=== PATIENT | female | born 1960 | race Caucasian/White ===

== ENCOUNTER 2019-01-07 02:04 | Emergency (ER) | payer BC ==
--- OUTSIDE RECORDS SUMMARY | 2019-01-07 02:09 | XMS REPORT | Continuity of Care Document ---
:1960 Author Organization [facility] Care Team Providers Name Role Phone Neeraj Jimenez MD Unavailable Unavailable Encounters Encounter Performer Location Date Office Visit [facility] Jul 11, 2012 Allergies, Adverse Reactions, Alerts Type Substance Reaction Status Drug allergy PENICILLIN Active Problems Problem Effective Dates Problem Status ELBOW PAIN, BILATERAL Jun 06, 2012 Active NECK PAIN Jun 06, 2012 Active PAIN IN JOINT, MULTIPLE SITES Jun 06, 2012 Active CERVICAL RADICULOPATHY Inactive LATERAL EPICONDYLITIS, BILATERAL Inactive CERVICAL DDD Jun 06, 2012 Active SHOULDER PAIN, RIGHT Inactive Procedures Date Description Comments Jun 06, 2012 genitourinary review of systems, E&M denies loss of urine, frequent urination,night time urination,painful urination,blood in urine, or kidney stones Jun 06, 2012 genitourinary review of systems, E&M denies loss of urine, frequent urination,night time urination,painful urination,blood in urine, or kidney stones Jul 11, 2012 genitourinary review of systems, E&M denies loss of urine, frequent urination,night time urination,painful urination,blood in urine, or kidney stones Medications Medication Instructions Start Date Status AMITRIPTYLINE HCL TABS per other M.D. Jun 06, 2012 Active AMITRIPTYLINE HCL 25 MG TABS 1 PO QHS Jul 11, 2012 Active Vital Signs Date Description Test Result Jun 06, 2012 height E&M - 8302-2 HEIGHT 63.5 in Jun 06, 2012 weight E&M - 3141-9 WEIGHT 205 lb
--- OUTSIDE RECORDS SUMMARY | 2019-01-07 02:09 | XMS REPORT | Continuity of Care Document ---
:1960 Author Organization [facility] Care Team Providers Name Role Phone TROY Hermosillo, Wesly Unavailable Unavailable Insurance Providers Payer name Policy type / Policy ID Covered libertarian ID Policy [place] Coverage type BCBS PPO PRIMARY [place] [employer] [place]) UNITED HEALTHCARE (EPO) UNITED HEALTHCARE (EPO) UNITED HEALTHCARE (EPO) UNITED HEALTHCARE (EPO) UNITED HEALTHCARE (EPO) UNITED HEALTHCARE (EPO) UNITED HEALTHCARE (EPO) UNITED HEALTHCARE (EPO) UNITED HEALTHCARE (EPO) UNITED HEALTHCARE (EPO) UNITED HEALTHCARE (EPO) UNITED HEALTHCARE (EPO) UNITED HEALTHCARE (EPO) UNITED HEALTHCARE (EPO) UNITED HEALTHCARE (EPO) UNITED HEALTHCARE (EPO) UNITED HEALTHCARE (EPO) [place]) Encounters Encounter Performer Location Date Office Visit Wesly Hermosillo PA-C [facility] Medical [facility] Allergies, Adverse Reactions, Alerts Type Substance Reaction Status Drug allergy CODEINE Inactive Drug allergy PENICILLIN throat closes Active Drug allergy DEMEROL rash Active Problems Problem Effective Dates Problem Status HYPERLIPIDEMIA Active PARESTHESIA May 25, 2012 Active SHOULDER PAIN May 25, 2012 Active ELBOW PAIN, BILATERAL May 25, 2012 Active CERVICAL RADICULOPATHY May 25, 2012 Active CANDIDIASIS, SKIN May 25, 2012 Active DEGENERATIVE DISC DISEASE, 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, 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 Jun 07, 2012 Active SPASM, MUSCLE Jun 07, 2012 Active PAIN IN JOINT, MULTIPLE SITES Mar 28, 2013 Active MYALGIA Mar 28, 2013 Active ALLERGIC RHINITIS Mar 28, 2013 Inactive SINUSITIS, ACUTE Apr 11, 2013 Active OTALGIA Jul 12, 2013 Active SKIN TAG Dec 13, 2013 Inactive APHTHAE, ORAL May 21, 2015 Active Procedures Date Description Comments March 09, 2011 mammogram Done May 25, 2012 smoking status former smoker March 09, 2011 mammogram Completed Oct 22, 2014 smoking status Former smoker Nov 20, 2014 smoking status Former smoker May 21, 2015 smoking status Former smoker Medications Medication Instructions Start Date Status MEDROL (AILYN) 4 MG TABS Take as directed Jun 07, 2012 Inactive AMITRIPTYLINE HCL 25 MG TAB 2 po qhs Jun 07, 2012 Inactive FLEXERIL TAB 10MG 1 po qhs Jun 07, 2012 Inactive LOTRISONE 1-0.05 % CREA apply BID to the affected May 25, 2012 Inactive area til the rash dis appears MEDROL (AILYN) 4 MG TABS Take as directed with food x 6 Mar 28, 2013 Inactive days BACTRIM DS 800-160 MG TABS one tab po BID x 10d Apr 03, 2013 Inactive CEFTIN 500 MG TABS 1 PO twice a day x 10d Jul 12, 2013 Inactive AMITRIPTYLINE HCL 50 MG TABS 1/2 tab po qhs Apr 11, 2013 Inactive FLEXERIL TAB 10MG 1 PO Daily @ bedtiime prn Jul 12, 2013 Inactive muscle spasm/pain SINGULAIR 10 MG TAB one tab po qpm Mar 28, 2013 Inactive CRESTOR 10 MG TABS one po qhs Apr 11, 2013 Inactive A/B OTIC 5.4-1.4 % SOLN 2-4 gtt L ear qid prn earache Jul 12, 2013 Inactive NYSTATIN 859153 UNIT/GM CREA APPLY TO AFECTED AREAS BID PRN Nov 20, 2014 Active CYCLOBENZAPRINE HCL 10 MG TABS 1 po TID prn muscle spasms Nov 20, 2014 Active COMPOUND MAALOX 2OZ, VISCOUS Swish and spit 15cc q 6 hours May 21, 2015 Active LIDOCAINE 2OZ, BENADRYL 2OZ prn MELOXICAM 15 MG TABS 1 po qd Oct 22, 2014 Active Immunizations Vaccine Date Status pneumococcal immunization administered Aug 11, 2007 completed Vital Signs Date Description Test Result May 25, 2012 height E&M - 8302-2 HEIGHT 63 in May 25, 2012 weight E&M - 3141-9 WEIGHT 208.5 lb May 25, 2012 temperature E&M TEMPERATURE 98.3 deg f May 25, 2012 pulse rate E&M - 8867-4 PULSE RATE 67 /min May 25, 2012 blood pressure, systolic - 8480-6 BP SYSTOLIC 126 mm Hg May 25, 2012 blood pressure, diastolic - 8462-4 BP DIASTOLIC 77 mm Hg Jun 07, 2012 weight E&M - 3141-9 WEIGHT 212 lb Jun 07, 2012 blood pressure, systolic - 8480-6 BP SYSTOLIC 130 mm Hg Jun 07, 2012 blood pressure, diastolic - 8462-4 BP DIASTOLIC 78 mm Hg Jun 07, 2012 pulse rate E&M - 8867-4 PULSE RATE 80 /min Mar 28, 2013 weight E&M - 3141-9 WEIGHT 220 lb Mar 28, 2013 temperature E&M TEMPERATURE 97.9 deg f Mar 28, 2013 pulse rate E&M - 8867-4 PULSE RATE 70 /min Mar 28, 2013 blood pressure, systolic - 8480-6 BP SYSTOLIC 122 mm Hg Mar 28, 2013 blood pressure, diastolic - 8462-4 BP DIASTOLIC 80 mm Hg Apr 11, 2013 weight E&M - 3141-9 WEIGHT 217 lb Apr 11, 2013 temperature E&M TEMPERATURE 97.6 deg f Apr 11, 2013 pulse rate E&M - 8867-4 PULSE RATE 67 /min Apr 11, 2013 blood pressure, systolic - 8480-6 BP SYSTOLIC 124 mm Hg Apr 11, 2013 blood pressure, diastolic - 8462-4 BP DIASTOLIC 80 mm Hg Jul 12, 2013 weight E&M - 3141-9 WEIGHT 219 lb Jul 12, 2013 temperature E&M TEMPERATURE 97.8 deg f Jul 12, 2013 pulse rate E&M - 8867-4 PULSE RATE 76 /min Jul 12, 2013 blood pressure, systolic - 8480-6 BP SYSTOLIC 120 mm Hg Jul 12, 2013 blood pressure, diastolic - 8462-4 BP DIASTOLIC 82 mm Hg Dec 13, 2013 weight E&M - 3141-9 WEIGHT 216.8 lb Dec 13, 2013 temperature E&M TEMPERATURE 98.1 deg f Dec 13, 2013 blood pressure, systolic - 8480-6 BP SYSTOLIC 132 mm Hg Dec 13, 2013 blood pressure, diastolic - 8462-4 BP DIASTOLIC 76 mm Hg Oct 22, 2014 height E&M - 8302-2 HEIGHT 63 in Oct 22, 2014 weight E&M - 3141-9 WEIGHT 210.8 lb Oct 22, 2014 temperature E&M TEMPERATURE 98.0 deg f Oct 22, 2014 pulse rate E&M - 8867-4 PULSE RATE 82 /min Oct 22, 2014 blood pressure, systolic - 8480-6 BP SYSTOLIC 130 mm Hg Oct 22, 2014 blood pressure, diastolic - 8462-4 BP DIASTOLIC 86 mm Hg Oct 22, 2014 respiratory rate E&M - 9279-1 RESP RATE 10 /min Nov 20, 2014 height E&M - 8302-2 HEIGHT 63 in Nov 20, 2014 weight E&M - 3141-9 WEIGHT 216.8 lb Nov 20, 2014 temperature E&M TEMPERATURE 98.0 deg f Nov 20, 2014 pulse rate E&M - 8867-4 PULSE RATE 73 /min Nov 20, 2014 blood pressure, systolic - 8480-6 BP SYSTOLIC 138 mm Hg Nov 20, 2014 blood pressure, diastolic - 8462-4 BP DIASTOLIC 81 mm Hg Nov 20, 2014 respiratory rate E&M - 9279-1 RESP RATE 10 /min May 21, 2015 weight E&M - 3141-9 WEIGHT 209 lb May 21, 2015 temperature E&M TEMPERATURE 98.7 deg f May 21, 2015 pulse rate E&M - 8867-4 PULSE RATE 71 /min May 21, 2015 blood pressure, systolic - 8480-6 BP SYSTOLIC 123 mm Hg May 21, 2015 blood pressure, diastolic - 8462-4 BP DIASTOLIC 65 mm Hg May 21, 2015 respiratory rate E&M - 9279-1 RESP RATE 10 /min Results Date Description Test Name Value Reference Interpretation Status Nov 20, hemoglobin, blood HGB 13.1 g/dL 12.0-15.0 2014Nov 20, hematocrit, blood HCT 39.1 % 35.0-43.8 2014Nov 20, sodium, serum SODIUM 138 mmol/L 811-101 [id number] Nov 20, potassium, serum POTASSIUM 4.3 mmol/L 3.3-5.0 2014Nov 20, albumin, serum ALBUMIN 4.0 g/dL 3.5-5.0 2014Nov 20, calcium, serum CALCIUM 9.3 mg/dL 8.8-10.0 2014Nov 20, creatinine, serum CREATININE 0.71 mg/dL 0.46-1.20 2014Nov 20, urea nitrogen, blood BUN 17 mg/dL 8-20 2014Nov 20, alkaline phosphatase, ALK PHOS 39 U/L 26-102 2014 serum Nov 20, aspartate SGOT (AST) 19 U/L 10-42 2014 aminotransferase (SGOT), serum Nov 20, alanine SGPT (ALT) 26 U/L 11-43 2015 aminotransferase (SGPT), serum Nov 20, cholesterol, serum CHOLESTEROL 239 mg/dl 120-200 High 2014Nov 20, HDL cholesterol, HDL 51 mg/dl 31-79 2014 serum Nov 20, LDL cholesterol, LDL 149 mg/dl 0-130 High 2015 serum Nov 20, thyroid stimulating TSH 2.13 0.34-5.60 2015 hormone, serum uIU/mL
--- OUTSIDE RECORDS SUMMARY | 2019-01-07 02:09 | XMS REPORT | Continuity of Care Document ---
:1960 Author Organization Interface Problems Problem Status Onset Classification Date Comments Source Date Reported APHTHAE, ORAL Active Condition 05/21/2015 Medical 015 Group Aphthous ulcer of Active Problem 12/05/2018 Data [facility] mouth<sup>1</sup> 015 migrated Group from [employer] on 06/07/15. 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 [facility] 014 Group OTALGIA Active Condition 05/21/2015 [facility] 013 Group SINUSITIS, ACUTE Active Condition 05/21/2015 [facility] 013 Group PAIN IN JOINT, Active Condition 05/21/2015 [facility]LE [facility] MYALGIA Active Condition 05/21/2015 [facility] 013 Group ALLERGIC RHINITIS Inactive Condition 05/21/2015 [facility] 013 Group Multiple joint Active Problem 12/05/2018 Data Medical pain<sup>8</sup> 013 migrated Group from [employer] on 03/15/15. Muscle Active Problem 12/05/2018 Data Medical pain<sup>9</sup> 013 migrated Group from [employer] on 03/15/15. DEGENERATIVE DISC Active Condition 05/21/2015 Medical DISEASE, CERVICAL 012 Group SPINE DEGENERATIVE JOINT Active Condition 05/21/2015 Medical DISEASE 012 Group SPASM, MUSCLE Active Condition 05/21/2015 Medical 012 Group Degeneration of Active Problem 12/05/2018 Data [facility] cervical 012 migrated Group intervertebral from GE disc<sup>6</sup> Centricity on 03/15/15. 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 Spasm<sup>14</sup> Active Problem 12/05/2018 Data Medical 012 migrated Group from [employer] on 03/15/15. NECK PAIN Active Condition 07/11/2012 [facility] CERVICAL DDD Active Condition 07/11/2012 [facility] PARESTHESIA Active Condition 05/21/2015 Medical 012 Group SHOULDER PAIN Active Condition 05/21/2015 Medical 012 Group ELBOW PAIN, Active Condition 05/21/2015 [facility] BILATERAL [facility] CERVICAL Active Condition 05/21/2015 [facility] RADICULOPATHY 012 [facility] CANDIDIASIS, SKIN Active Condition 05/21/2015 [facility] 012 Group Candidiasis of Resolved Problem 12/05/2018 Data Medical skin<sup>2, 3, 012 migrated Group 4</sup> from [employer] on 04/23/15. Cervical Active Problem 12/05/2018 Data Medical radiculopathy<sup>5< 012 migrated Group /sup> from [employer] on 03/15/15. Pain in Active Problem 12/05/2018 Data Medical elbow<sup>11</sup> 012 migrated Group from [employer] on 03/15/15. Paresthesia<sup>12</ Active Problem 12/05/2018 Data Medical sup> 012 migrated Group from [employer] on 03/15/15. Shoulder Active Problem 12/05/2018 Data Medical pain<sup>13</sup> 012 migrated Group from [employer] on 03/15/15. LATERAL Inactive Condition 07/11/2012 [facility] EPICONDYLITIS, Bone & BILATERAL Joint SHOULDER PAIN, RIGHT Inactive Condition 07/11/2012 [facility] HYPERLIPIDEMIA Active Condition 05/21/2015 Medical Group Hyperlipidemia<sup>7 Active Problem 12/05/2018 Data Medical </sup> migrated Group from [employer] on 03/15/15. Obesity Active Problem 12/05/2018 Medical Group Medications Medication Details Route Status Patient Ordering Order Source Instructions Provider Date ketoconazole 200 200 mg=1 tab, No MH mg oral tablet PO, Daily, X Longer 018 Medical 10 day, # 10 Active Group tab, 0 Refill(s), Pharmacy: [facility]/pharmacy #[id number] Nystatin 384204 1 appl, TOP, No MH UNT/ML Topical TID, X 7 day, Longer 018 Medical Cream # 30 gm, 0 Active Group Refill(s), Pharmacy: [facility]/pharmacy #[id number] FIRST Mouthwash See Active MH BLM topical Instructions, 018 Medical suspension # 237 unknown Group unit, Refill(s) 1, SWISH AND SPIT 15 MILLILITERS EVERY 6 HOURS NEEDED, Pharmacy: [facility]/pharmacy #[id number] COMPOUND MAALOX Swish and Active MH 2OZ, VISCOUS spit 15cc q 6 015 Medical LIDOCAINE 2OZ, hours prn Group BENADRYL 2OZ NYSTATIN 602500 APPLY TO Active MH UNIT/GM CREA AFECTED AREAS 015 Medical BID PRN Group CYCLOBENZAPRINE 1 po TID prn Active MH HCL 10 MG TABS muscle spasms 015 Medical Group CYCLOBENZAPRINE 1 po TID prn Active MH HCL 10 MG TABS muscle spasms 015 Medical Group MELOXICAM 15 MG 1 po qd Active MH TABS 015 Medical Group MELOXICAM 15 MG 1 po qd Active MH TABS 015 Medical Group FLEXERIL TAB 10MG 1 PO Daily @ No MH bedtiime prn Longer 013 Medical muscle Active Group spasm/pain CEFTIN 500 MG 1 PO twice a No MH TABS day x 10d Longer Medical Active Group A/B OTIC 5.4-1.4 2-4 gtt L ear No MH % SOLN qid prn Longer Medical earache Active Group CRESTOR 10 MG one po qhs No MH TABS Longer 013 Medical Active Group AMITRIPTYLINE HCL 1/2 tab po Active MH 50 MG TABS qhs 013 Medical Group AMITRIPTYLINE HCL 1/2 tab po No MH 50 MG TABS qhs Longer 013 Medical Active Group AMITRIPTYLINE HCL 1/2 tab po No MH 50 MG TABS qhs Longer 013 Medical Active Group CRESTOR 10 MG one po qhs No MH TABS Longer 013 Medical Active Group BACTRIM DS one tab po No MH 800-160 MG TABS BID x 10d Longer 013 Medical Active Group BACTRIM DS one tab po No MH 800-160 MG TABS BID x 10d Longer 013 Medical Active Group MEDROL (AILYN) 4 MG Take as No MH TABS directed with Longer 013 Medical food x 6 days Active Group SINGULAIR 10 MG one tab po No MH TAB qpm Longer 013 Medical Active Group SINGULAIR 10 MG one tab po No MH TAB qpm Longer 013 Medical Active Group AMITRIPTYLINE HCL 1 PO QHS Active [facility] 25 MG TABS 012 [facility] MEDROL (AILYN) 4 MG Take as No MH TABS directed Longer 012 Medical Active Group AMITRIPTYLINE HCL 2 po qhs No MH 25 MG TAB Longer 012 Medical Active Group FLEXERIL TAB 10MG 1 po qhs No MH Longer 012 Medical Active Group AMITRIPTYLINE HCL 2 po qhs No MH 25 MG TAB Longer 012 Medical Active Group AMITRIPTYLINE HCL 2 po qhs No MH 25 MG TAB Longer 012 Medical Active Group AMITRIPTYLINE HCL per other Active [facility] TABS M.D. 012 [facility] LOTRISONE 1-0.05 apply BID to No MH % CREA the affected Longer 012 Medical area til Active Group the rash dis appears Allergies, Adverse Reactions, Alerts Substance Category Reaction Severity Reaction Status Date Comments Source type Reported CODEINE Drug CODEINE MH allergy 2 Medical Group PENICILLIN Drug PENICILLIN MH allergy Medical Group DEMEROL Drug DEMEROL allergy Medical Group penicillins Assertion Drug Active Data MH <sup>1, allergy migrated Medical 2</sup> from [facility] on 05/15/15. Originally documented as PENICILLIN. meperidine< Assertion Drug Active Data MH sup>3, allergy migrated Medical 4</sup> from [facility] on 02/14/15. Originally documented as DEMEROL. Immunizations Immunization Date Given Site Status Last Comments Source Updated pneumococcal 08/11/2007 completed Medical immunization Group administered pneumococcal 08/11/2007 completed [facility] Medical 23-valent Comment: Group vaccine<sup>1</[place] pneumovax. p> Migrated from OBS ; Data migrated from [employer] on 11/18/2015. Results Order Name Results Value Reference Date Interpretation Comments Source Range Chemistry SODIUM 138 136 - 142 mmol/L 2014 Medical Group Chemistry POTASSIUM 4.3 3.3 - 5.0 mmol/L 2014 [facility] Chemistry ALBUMIN 4.0 3.5 - 5.0 g/dL 2014 Medical [facility] Chemistry CALCIUM 9.3 8.8 - 10.0 mg/dL 2014 [facility] Chemistry CREATININE 0.71 0.46 - 1.20 mg/dL 2014 [facility] Chemistry BUN 17 8 - 20 mg/dL 2014 Medical [facility] Chemistry ALK PHOS 39 U/L 26 - 102 2014 Medical [facility] Chemistry SGOT (AST) 19 U/L 10 - 42 2014 Medical [facility] Chemistry SGPT (ALT) 26 U/L 11 - 43 2014 Medical [facility] Chemistry CHOLESTEROL 239 120 - 200 mg/dl 2014 Medical [facility] Chemistry HDL 51 31 - 79 mg/dl 2014 Medical [facility] Chemistry LDL 149 0 - 130 mg/dl 2014 Medical [facility] Chemistry TSH 2.13 0.34 - 5.60 uIU/mL 2014 Medical [facility] Hematology HGB 13.1 12.0 - 15.0 g/dL 2014 [facility] Hematology HCT 39.1 % 35.0 - 43.8 2014 Medical Group Vital Signs Vital Sign Value Date Comments Source Height 160.02 cm 05/18/2018 Medical [facility] Weight 102.727 05/18/2018 Medical [facility] BMI Calculated 40.12 05/18/2018 Medical [facility] Temperature Oral (F) 98.1 F 05/18/2018 Medical Group Systolic (mm Hg) 147 05/18/2018 Medical Group Diastolic (mm Hg) 70 05/18/2018 [facility] Heart Rate 76 05/18/2018 [facility] Weight 209 05/21/2015 [facility] Temperature Oral (F) 98.7 F 05/21/2015 Medical Group Heart Rate 71 05/21/2015 [facility] Systolic (mm Hg) 123 05/21/2015 [facility] Diastolic (mm Hg) 65 05/21/2015 [facility] Respitory Rate 10 05/21/2015 [facility] Height 63 11/20/2014 [facility] Weight 216.8 11/20/2014 [facility] Temperature Oral (F) 98.0 F 11/20/2014 Medical Group Heart Rate 73 11/20/2014 [facility] Systolic (mm Hg) 138 11/20/2014 [facility] Diastolic (mm Hg) 81 11/20/2014 Medical Group Respitory Rate 10 11/20/2014 [facility] Height 63 10/22/2014 [facility] Weight 210.8 10/22/2014 [facility] Temperature Oral (F) 98.0 F 10/22/2014 Medical Group Heart Rate 82 10/22/2014 [facility] Systolic (mm Hg) 130 10/22/2014 [facility] Diastolic (mm Hg) 86 10/22/2014 Medical Group Respitory Rate 10 10/22/2014 Medical Group Weight 216.8 12/13/2013 Medical Group Temperature Oral (F) 98.1 F 12/13/2013 [facility] Systolic (mm Hg) 132 12/13/2013 [facility] Diastolic (mm Hg) 76 12/13/2013 Medical Group Weight 219 07/12/2013 Medical Group Temperature Oral (F) 97.8 F 07/12/2013 Medical Group Heart Rate 76 07/12/2013 Medical Group Systolic (mm Hg) 120 07/12/2013 [facility] Diastolic (mm Hg) 82 07/12/2013 Medical Group Weight 217 04/11/2013 Medical Group Temperature Oral (F) 97.6 F 04/11/2013 Medical Group Heart Rate 67 04/11/2013 Medical Group Systolic (mm Hg) 124 04/11/2013 Medical Group Diastolic (mm Hg) 80 04/11/2013 Medical Group Weight 220 03/28/2013 Medical Group Temperature Oral (F) 97.9 F 03/28/2013 Medical Group Heart Rate 70 03/28/2013 Medical Group Systolic (mm Hg) 122 03/28/2013 Medical Group Diastolic (mm Hg) 80 03/28/2013 Medical Group Weight 212 06/07/2012 Medical Group Systolic (mm Hg) 130 06/07/2012 Medical Group Diastolic (mm Hg) 78 06/07/2012 Medical Group Heart Rate 80 06/07/2012 Medical Group Height 63.5 06/06/2012 [facility] Weight 205 06/06/2012 [facility] Height 63 05/25/2012 Medical Group Weight 208.5 05/25/2012 Medical Group Temperature Oral (F) 98.3 F 05/25/2012 Medical Group Heart Rate 67 05/25/2012 Medical Group Systolic (mm Hg) 126 05/25/2012 Medical Group Diastolic (mm Hg) 77 05/25/2012 Medical Group Encounters Location Location Encounter Encounter Reason Attending ADM DC Status Source Details Type Number For Provider Date Date Visit [place] [id number] [place] [facility] Visit 6820 Barbara ALONZO /2011 [facility] [place] [facility] [id number] [facility] 07/11 07/11 [place] [facility] Visit 6270 Barbara ALONZO /2011 [facility] Lab Report [id number] Melany 12/17 [facility] Medical Medical PA-C Group Group - [facility] Office [id number] Sh[place] 10/22 10/22 [place] Medical Visit 4610 TROY Hermosillo /2014 Medical [facility] Lab Report [id number] Sharrone 11/20 11/20 [place] Medical 7340 EDNA HermosilloC /[address] [facility] Office [id number] Sharrone 05/21 05/21 [place] Medical Visit 9620 TROY Hermosillo /2014 Medical [facility] Outpatient [id number] SHARRONE 05/21 Active [facility] JAIMEE [place] [facility] [id number] SHARRONE 11/18 Active [facility] JAIMEE [place] Outpatient [id number] SHARRONE 03/07 Active [facility] JAIMEE [facility] Family Phone [id number] 01/30 02/01 Medicine Message /2017 Medical [facility] Outpatient [id number] YVETTE 05/[address] [facility] JAIMEE [facility] Outpatient [id number] Yvette 05/18 05/19 Medicine Jaimee [facility] Procedures Procedure Code Date Perfomer Comments Source genitourinary 715568.9 07/11/2012 denies loss of [facility] review of systems, urine,frequent & Joint E&M urination,nigh t time urination,pain ful urination,bloo d in urine, or kidney stones genitourinary 221697.9 06/06/2012 denies loss of [place] review of systems, urine,frequent & Joint E&M urination,nigh t time urination,pain ful urination,bloo d in urine, or kidney stones genitourinary 968039.9 06/06/2012 denies loss of [place] [facility] review of systems, urine,frequent & Joint E&M urination,nigh t time urination,pain ful urination,bloo d in urine, or kidney stones mammogram [id number] 03/09/2011 Done Medical Group mammogram [id number] 03/09/2011 Completed Medical Group Shoulder repair [id number] 10/17/2006 Medical Group [id number] x 4 Medical section<sup>1</sup> Group
--- OUTSIDE RECORDS SUMMARY | 2019-01-07 02:09 | XMS REPORT | Continuity of Care Document ---
:1960 Author Organization [facility] Care Team Providers Name Role Phone Neeraj Jimenez MD Unavailable Unavailable Encounters Encounter Performer Location Date Office Visit Neeraj [facility] Jun 06, 2012 Allergies, Adverse Reactions, Alerts Type Substance [...] per other M.D. Jun 06, 2012 Active Vital Signs Date Description Test Result Jun 06, 2012 height E&M - 8302-2 HEIGHT 63.5 in Jun 06, 2012 weight E&M - 3141-9 WEIGHT 205 lb
--- OUTSIDE RECORDS SUMMARY | 2019-01-07 02:09 | XMS REPORT | Continuity of Care Document ---
:1960 Author Organization [facility] Care Team Providers Name Role Phone TROY Deutsch, Melany Unavailable Unavailable Insurance Providers Payer name Policy type / Policy ID Covered green party ID Policy [place] Coverage type BCBS PPO PRIMARY [place] [employer]C[employer] [place] UNITED HEALTHCARE (EPO) UNITED HEALTHCARE (EPO) UNITED HEALTHCARE (EPO) UNITED HEALTHCARE (EPO) UNITED HEALTHCARE (EPO) UNITED HEALTHCARE (EPO) UNITED HEALTHCARE (EPO) UNITED HEALTHCARE (EPO) UNITED HEALTHCARE (EPO) UNITED HEALTHCARE (EPO) UNITED HEALTHCARE (EPO) UNITED HEALTHCARE (EPO) Encounters Encounter Performer Location Date Lab Report Melany Deutsch PA-C [facility] - Dec 17, 2013 [place] Allergies, Adverse Reactions, Alerts Type Substance Reaction Status Drug allergy PENICILLIN Active Drug allergy DEMEROL Active Drug allergy CODEINE Inactive Problems Problem Effective Dates Problem Status HYPERLIPIDEMIA Active PARESTHESIA May 25, 2012 Active SHOULDER PAIN May 25, 2012 Active ELBOW PAIN, BILATERAL May 25, 2012 Active CERVICAL RADICULOPATHY May 25, 2012 Active CANDIDIASIS, SKIN May 25, 2012 Inactive DEGENERATIVE DISC DISEASE, 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, 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 Jun 07, 2012 Active SPASM, MUSCLE Jun 07, 2012 Active PAIN IN JOINT, MULTIPLE SITES Mar 28, 2013 Active MYALGIA Mar 28, 2013 Active ALLERGIC RHINITIS Mar 28, 2013 Inactive SINUSITIS, ACUTE Apr 11, 2013 Active OTALGIA Jul 12, 2013 Active SKIN TAG Dec 13, 2013 Active Procedures Date Description Comments March 09, 2011 mammogram Done May 25, 2012 smoking status former smoker March 09, 2011 mammogram Completed Medications Medication Instructions Start Date Status MEDROL (AILYN) 4 MG TABS Take as directed Jun 07, 2012 Inactive AMITRIPTYLINE HCL 25 MG TAB 2 po qhs Jun 07, 2012 Inactive FLEXERIL TAB 10MG 1 po qhs Jun 07, 2012 Inactive LOTRISONE 1-0.05 % CREA apply BID to the affected area May 25, 2012 Inactive til the rash dis appears MEDROL (AILYN) 4 MG TABS Take as directed with food x 6 Mar 28, 2013 Inactive days SINGULAIR 10 MG TAB one tab po qpm Mar 28, 2013 Active BACTRIM DS 800-160 MG TABS one tab po BID x 10d Apr 03, 2013 Inactive CRESTOR 10 MG TABS one po qhs Apr 11, 2013 Active AMITRIPTYLINE HCL 50 MG TABS 1/2 tab po qhs Apr 11, 2013 Active FLEXERIL TAB 10MG 1 PO Daily @ bedtiime prn muscle Jul 12, 2013 Active spasm/pain CEFTIN 500 MG TABS 1 PO twice a day x 10d Jul 12, 2013 Inactive A/B OTIC 5.4-1.4 % SOLN 2-4 gtt L ear qid prn earache Jul 12, 2013 Active Immunizations Vaccine Date Status pneumococcal immunization [...]
--- OUTSIDE RECORDS SUMMARY | 2019-01-07 02:10 | XMS REPORT | Summary of Care ---
:1960 Author Name Spring Banegas M.A. Address Unavailable Unavailable , Care Team Providers Name Role Phone MICHELLE Dow, SANDRITA Unavailable Unavailable YVETTE GREY Unavailable Unavailable MICHELLE ALONZO [place], CHECO BLANCAS Unavailable Unavailable Functional Status Name Dates Details Functional status health issues are not documented Status: Name Dates Details Cognitive status health issues are not documented Status: Problems Name Dates Details History of carpal tunnel release of both wrists (V45.89, Z98.890) Status: Active Trigger middle finger of right hand (727.03, M65.331) Status: Active Trigger middle finger of left hand (727.03, M65.332) Status: Active Trigger finger of right thumb (727.03, M65.311) Status: Active Trigger finger of left thumb (727.03, M65.312) Status: Active Medications Name Dates Details Plaquenil TABS Refills: 0 Active Diclofenac Potassium TABS Refills: 0 Active sulfaSALAzine TABS Refills: 0 Active Ibuprofen 800 MG Oral Tablet Refills: 0 Active Allergies and Adverse Reactions Name Dates Details Penicillins (Allergy) Status: Active Past Medical History Name Dates Details History of arthritis (V13.4, Z87.39) Status: Resolved History of back pain (V13.59, Z87.39) Status: Resolved History of hepatitis (V12.09, Z86.19) Status: Resolved History of herpes zoster (V12.09, Z86.19) Status: Resolved History of paralysis (V15.89, Z87.898) Status: Resolved History of pneumonia (V12.61, Z87.01) Status: Resolved Procedures Procedure Dates Details History of Carpal tunnel surgery Completed History of Foot surgery Completed History of Shoulder surgery Completed History of Tonsillectomy Completed History of section Completed Immunization Name Dates Details Immunizations not documented Family History Name Dates Details Family history of diabetes mellitus (V18.0, Z83.3) Comments: Family History Status: Active Family history of Heart trouble (429.9, I51.9) Comments: Family History Status: Active Family history of arthritis (V17.7, Z82.61) Comments: Family History Status: Active Family history of heart failure (V17.49, Z82.49) Comments: Family History Status: Active Social History Name Dates Details Unknown if ever smoked Vital Signs Date Test Result Details No Known Vitals to report Results Date Description Value Details [id number] [U] XR HAND MIN 3 VWS BILATERAL XR HAND MIN 3 VWS BILATERAL Images acquired, not reported on this accession number. Plan of Care Name Dates Details Planned Observations Planned Goals not documented Planned Encounters Appointment; SANDRITA MARTINEZ M.D. On: 09-Jan-2019 8:30 Interventions Provided Labs/Procedures/Imaging[U] XR HAND MIN 3 VWS BILATERAL; Done: 05 Dec 2018 Instructions Name Dates Details Instructions not documented Encounters Appointment; DENISE TRIVEDI On: 29-Mar-2017 15:30 Encounter Diagnosis: Problem not documented Appointment; DENISE TRIVEDI On: 07-Apr-2017 8:30 Encounter Diagnosis: Problem not documented Appointment; DENISE TRIVEDI On: 20-Apr-2017 15:15 Encounter Diagnosis: Problem not documented Appointment; DENISE TRIVEDI On: 18-May-2017 15:15 Encounter Diagnosis: Problem not documented Appointment; DENISE TRIVEDI On: 16-Jun-2017 7:30 Encounter Diagnosis: Problem not documented Appointment; DENISE TRIVEDI On: 23-Jun-2017 8:30 Encounter Diagnosis: Problem not documented Appointment; DENISE TRIVEDI On: 06-Jul-2017 14:45 Encounter Diagnosis: Problem not documented Appointment; DENISE TRIVEDI On: 17-Jan-2018 15:45 Encounter Diagnosis: Problem not documented Appointment; SANDRITA MARTINEZ M.D. On: 05-Dec-2018 9:00 Encounter Diagnosis: Problem not documented
--- OUTSIDE RECORDS SUMMARY | 2019-01-07 02:10 | XMS REPORT | Summary of Care ---
:1960 Author Organization [facility] Address [address] [place] [address]- Encounter HQ Encntr_jasper(FIN) [id number] Date(s): 05/18/18 - 05/18/18 [facility] [address] [place] [address]- [phone] Discharge Disposition: Home or Self Care Attending Physician: Wesly Hermosillo PA-C Vital Signs Most recent to oldest [Reference Range]: 1 Height 160.02 cm (05/18/18 9:55 AM) Temperature Oral [96.4-99.1 DegF] 98.1 DegF (05/18/18 9:55 AM) Blood Pressure [90-140/60-90 mmHg] 147/70 mmHg *HI* (05/18/18 9:55 AM) Peripheral Pulse Rate [60-100 bpm] 76 bpm (05/18/18 9:55 AM) Weight 102.727 kg (05/18/18 9:55 AM) Body Mass Index 40.12 m2 (05/18/18 9:55 AM) Problem List Condition Effective Dates Status Health Status Informant Aphthous ulcer of mouth1 05/21/15 Active 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 Candidiasis of skin2, 3, 4 05/25/12 Resolved Cervical radiculopathy5 05/25/12 Active Degeneration of cervical 06/07/12 Active intervertebral disc6 Hyperlipidemia7 Active Multiple joint pain8 03/28/13 Active Muscle pain9 03/28/13 Active Obesity(Confirmed) Active [id number] 06/07/12 Active Pain in elbow11 05/25/12 Active Ioijaqayviy20 05/25/12 Active Shoulder pain13 05/25/12 Active Spasm14 06/07/12 Active 1Data migrated from [employer] on 06/07/15.2Data migrated from [employer] on 05/03/15.3Data migrated from [employer] on 05/02/15.4Data migrated from [employer] on 04/23/15.5Data migrated from [employer] on 03/15/15.6Data migrated from [employer] on 03/15/15.7Data migrated from [employer] on 03/15.8Data migrated from [employer] on 03/15/15.9Data migrated from [employer] on 03/15/15.10Data migrated from [employer] on 03/15/15.11Data migrated from [employer] on 03/15/15.12Data migrated from [employer] on .13Data migrated from [employer] on 03/15/15.14Data migrated from [employer] on 03/15/15. Allergies, Adverse Reactions, Alerts Substance Reaction Severity Status penicillins1, 2 Active meperidine3, 4 Active 1Data migrated from [employer] on 06/07/15. Originally documented as PENICILLIN. [id number] migrated from [employer] on 05/15/15. Originally documented as PENICILLIN.3Data migrated from [employer] on 06/07/15. Originally documented as DEMEROL. [email or web address] migrated from [employer] on . Originally documented as DEMEROL. Medications ketoconazole 200 mg oral tablet 200 mg=1 tab, PO, Daily, X 10 day, # 10 tab, 0 Refill(s), Pharmacy: [facility]/ pharmacy #[id number] Start Date: 05/18/18 Stop Date: 05/28/18 Status: Completednystatin topical 100,000 units/g cream 1 appl, TOP, TID, X 7 day, # 30 gm, 0 Refill(s), Pharmacy: [facility]/pharmacy #[id number] Start Date: 05/18/18 Stop Date: 05/25/18 Status: Completed Results No data available for this section Immunizations Given and Recorded Vaccine Date Status Refusal Reason pneumococcal 23-valent vaccine1 08/11/07 Given 1Result Comment: pneumovax. Migrated from OBS ; Data migrated from [employer] on 11/18/2015. Procedures Procedure Date Related Diagnosis Body Site Status Shoulder repair 2007 Completed section1 Completed 1x 4 Social History Social History Type Response Smoking Status Never smoker; Concerns about tobacco use in household: No; Exposure to Tobacco Smoke None; Cigarette Smoking Last 365 Days No; Reg Smoking Cessation Counseling No entered on: 05/18/18 Assessment and Plan No data available for this section
--- OUTSIDE RECORDS SUMMARY | 2019-01-07 02:10 | XMS REPORT | Continuity of Care Document ---
:1960 Author Organization [facility] Care Team Providers Name Role Phone TROY [...] Location Date Office Visit Wesly Hermosillo PA-C [facility] Oct Practice Allergies, Adverse Reactions, Alerts Type Substance [...] Active SKIN TAG Dec 13, 2013 Inactive Procedures Date Description Comments March 09, 2011 mammogram Done May 25, 2012 smoking status former smoker March 09, 2011 mammogram Completed Oct 22, 2014 smoking status Former smoker Medications Medication Instructions [...] @ bedtiime prn muscle Jul 12, 2013 Inactive spasm/pain SINGULAIR 10 MG TAB one tab po qpm Mar 28, 2013 Inactive CRESTOR 10 MG TABS one po qhs Apr 11, 2013 Inactive A/B OTIC 5.4-1.4 % SOLN 2-4 gtt L ear qid prn earache Jul 12, 2013 Inactive MELOXICAM 15 MG TABS 1 po qd [...]
--- OUTSIDE RECORDS SUMMARY | 2019-01-07 02:10 | XMS REPORT | Continuity of Care Document ---
:[address] [facility] [place] [place] Care Team Providers Name Role Phone TROY Hermosillo, Wesly Unavailable Unavailable Insurance Providers Payer name Policy type / Policy ID Covered alliance party ID Policy [place] Coverage type BCBS [...] Encounters Encounter Performer Location Date Lab Report Wesly Hermosillo PA-C [facility] Nov 20, 2014 [facility] Allergies, Adverse Reactions, Alerts Type Substance [...] Nov 20, 2014 smoking status Former smoker Medications Medication [...] 1 po qd Oct 22, 2014 Active CYCLOBENZAPRINE HCL 10 MG TABS 1 po TID prn muscle spasms Nov 20, 2014 Active NYSTATIN 668798 UNIT/GM CREA APPLY TO AFECTED AREAS BID PRN Nov 20, 2014 Active Immunizations Vaccine Date Status pneumococcal [...] 2014Nov 20, sodium, serum SODIUM 138 mmol/L [phone] Nov 20, potassium, serum POTASSIUM 4.3 mmol/L 3.3-5.0 2014Nov 20, albumin, serum ALBUMIN 4.0 g/dL 3.5-5.0 2014Nov 20, calcium, serum CALCIUM 9.3 mg/dL 8.8-10.0 2014Nov 20, creatinine, serum CREATININE 0.71 mg/dL 0.46-1.20 2014Nov 20, urea nitrogen, blood BUN 17 mg/dL 8-20 2014Nov 20, alkaline phosphatase, ALK PHOS 39 U/L 26-102 2014Nov 20, aspartate SGOT (AST) 19 U/L 10-42 2014 aminotransferase (SGOT), serum Nov 20, alanine SGPT (ALT) 26 U/L 11-43 2014 aminotransferase (SGPT), serum Nov 20, cholesterol, serum CHOLESTEROL 239 mg/dl 120-200 High 2014Nov 20, HDL cholesterol, HDL 51 mg/dl 31-79 2014 serum Nov 20, LDL cholesterol, LDL 149 mg/dl 0-130 High 2014Nov 20, thyroid stimulating TSH 2.13 0.34-5.60 2015 hormone, serum uIU/mL
--- OUTSIDE RECORDS SUMMARY | 2019-01-07 02:10 | XMS REPORT | Continuity of Care Document ---
:1960 Author Organization [facility] Care Team Providers Name Role Phone [...] Location Date Office Visit Wesly Hermosillo PA-C [facility] Oct Practice Allergies, Adverse Reactions, Alerts [...]
--- OUTSIDE RECORDS SUMMARY | 2019-01-07 02:10 | XMS REPORT | Summary of Care ---
:1960 Author Organization [facility] Address [address] 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 Originally documented as PENICILLIN. [id number] migrated from [employer] on 05/15/15. Originally documented as PENICILLIN.3Data migrated from [employer] on 06/07/15. Originally documented as DEMEROL. [email or web address] migrated from [employer] on . Originally documented as DEMEROL. Medications FIRST Mouthwash BLM topical suspension See Instructions, # 237 unknown unit, Refill(s) 1, SWISH AND SPIT 15 MILLILITERS EVERY 6 HOURS NEEDED, Pharmacy: [facility]/pharmacy #[id number] Start Date: 01/30/18 Status: Ordered Results No data available for this section Immunizations Given and Recorded Vaccine Date Status Refusal Reason pneumococcal 23-valent vaccine1 08/11/07 Given 1Result Comment: pneumovax. Migrated from OBS ; Data migrated from [employer] on 11/18/2015. Procedures Procedure Date Related Diagnosis Body Site Status Shoulder repair 2006 Completed section1 Completed 1x 4 Social History Social History Type Response Smoking Status Never smoker; Concerns about tobacco use in household: No; Exposure to Tobacco Smoke None; Cigarette Smoking Last 365 Days No; Reg Smoking Cessation Counseling No entered on: 03/07/17 Assessment and Plan No data available for this section
[2019-01-07] MEDS ORDERED: ALBUTEROL 2.5 MG/3 ML NEB SOL ONE (02:49)
--- NOTE | 2019-01-07 03:11 | ER ---
Nurse's Notes [facility] Name: Vijaya Philippe Age: 58 yrs Sex: Female : 1960 Arrival Date: 01/07/2019 Time: 02:06 Bed 6 Private MD: Diagnosis: Bronchitis, not specified as acute or chronic Presentation: 01/07 02:10 Presenting complaint: Patient states: cough since a couple of days associated with cc3 chest pain when coughing; started to have shortness of breath last night. Transition of care: patient was not received from another setting of care. Onset of symptoms was January 06, 2019. Risk Assessment: Do you want to hurt yourself or someone else? Patient reports no desire to harm self or others. Initial Sepsis Screen: Does the patient meet any 2 criteria? No. Patient's initial sepsis screen is negative. Does the patient have a suspected source of infection? No. Patient's initial sepsis screen is negative. Care prior to arrival: None. 02:10 Method Of Arrival: Ambulatory cc3 02:10 Acuity: PARDEEP 3 cc3 Triage Assessment: 02:10 General: Appears in no apparent distress. uncomfortable, Behavior is calm, cooperative, cc3 appropriate for age. Pain: Complains of pain in chest Pain does not radiate. EENT: No signs and/or symptoms were reported regarding the EENT system. Neuro: Level of Consciousness is awake, alert, obeys commands, Oriented to person, place, time, situation, Appropriate for age. Cardiovascular: Patient's skin is warm and dry. Respiratory: Airway is patent Respiratory effort is even, unlabored, Respiratory pattern is regular, symmetrical. GI: Abdomen is round obese. : No signs and/or symptoms were reported regarding the genitourinary system. Derm: No signs and/or symptoms reported regarding the dermatologic system. Musculoskeletal: Circulation, motion, and sensation intact. Range of motion: intact in all extremities. Historical: - Allergies: 02:10 PENICILLINS; cc3 - Home Meds: 02:10 diclofenac Oral [Active]; sulfasalazine Oral [Active]; Tramadol Oral [Active]; cc3 - PMHx: 02:10 Arthritis; cc3 - PSHx: 02:10 ; Tonsillectomy; Carpal Tunnel Repair; bilateral feet surgery; right shoulder cc3 surgery; - Immunization history:: Adult Immunizations up to date. - Social history:: Smoking status: Patient/guardian denies using tobacco, never smoked. - Ebola Screening: : No symptoms or risks identified at this time. Screenin:10 Abuse screen: Denies threats or abuse. Denies injuries from another. Nutritional cc3 screening: No deficits noted. Tuberculosis screening: No symptoms or risk factors identified. Fall Risk Ambulatory Aid- None/Bed Rest/Nurse Assist (0 pts). Gait- Normal/Bed Rest/Wheelchair (0 pts) Mental Status- Oriented to own ability (0 pts). Assessment: 02:10 General: see triage notes. cc3 03:00 Reassessment: Patient appears in no apparent distress at this time. Patient and/or cc3 family updated on plan of care and expected duration. Pain level reassessed. Patient is alert, oriented x 3, equal unlabored respirations, skin warm/dry/pink. 03:20 Reassessment: Dr. Chapman discharged the patient home with prescription given. No IV cc3 cannula in situ. Patient left ER vitally stable and ambulatory with her . Vital Signs: 02:10 BP 172 / 84; Pulse 72; Resp 20 S; Temp 97.5(O); Pulse Ox 99% on R/A; Weight 92.99 kg cc3 (R); Height 5 ft. 4 in. (162.56 cm) (R); 03:00 BP 154 / 68; Pulse 72; Resp 20 S; Pulse Ox 98% on R/A; cc3 02:10 Body Mass Index 35.19 (92.99 kg, 162.56 cm) cc3 ED Course: 02:06 Patient arrived in ED. ds1 02:10 Patient has correct armband on for positive identification. Bed in low position. Call cc3 light in reach. Side rails up X 1. conveyor monitor on. Pulse ox on. NIBP on. 02:10 Arm band placed on right wrist. cc3 02:18 Melly Mc is Primary Nurse. cc3 02:22 Triage completed. cc3 02:25 Remington Chapman MD is Attending Physician. tw4 03:20 No provider procedures requiring assistance completed. Patient did not have IV access cc3 during this emergency room visit. 07:04 CXR XRAY In Process Unspecified. EDMS Administered Medications: 02:43 Drug: Albuterol 1.25 mg Route: Inhalation; cc3 03:10 Follow up: Response: No adverse reaction; Marked relief of symptoms cc3 Outcome: 03:11 Discharge ordered by . tw4 03:20 Discharged to home ambulatory, with family. cc3 03:20 Condition: stable 03:20 Discharge instructions given to patient, family, Instructed on discharge instructions, follow up and referral plans. medication usage, Demonstrated understanding of instructions, follow-up care, medications, Prescriptions given X 3. 03:24 Patient left the ED. cc3 Signatures: Dispatcher [employer] [facility] Elvira Neil dsRemington Peralta MD MD tw4 Melly Mc cc3
--- NOTE | 2019-01-07 03:11 | EDPHYS ---
Physician Documentation [facility] Emergency Department Name: Vijaya Philippe Age: 58 yrs Sex: Female : 1960 Arrival Date: 01/07/2019 Time: 02:06 Bed 6 Private MD: ED Physician Remington Chapman HPI: 01/07 06:48 This 58 yrs old Female presents to ER via Ambulatory with complaints of Cough.tw4 06:48 The patient or guardian reports cough. Onset: The symptoms/episode began/occurred 1 tw4 week(s) ago. Severity of symptoms: At their worst the symptoms were moderate, in the emergency department the symptoms are unchanged. Modifying factors: The symptoms are alleviated by nothing, the symptoms are aggravated by animal dander. The patient has not experienced similar symptoms in the past. Historical: - Allergies: 02:10 PENICILLINS; cc3 - Home Meds: 02:10 diclofenac Oral [Active]; sulfasalazine Oral [Active]; Tramadol Oral [Active]; cc3 - PMHx: 02:10 Arthritis; cc3 - PSHx: 02:10 ; Tonsillectomy; Carpal Tunnel Repair; bilateral feet surgery; right shoulder cc3 surgery; - Immunization history:: Adult Immunizations up to date. - Social history:: Smoking status: Patient/guardian denies using tobacco, never smoked. - Ebola Screening: : No symptoms or risks identified at this time. ROS: 06:48 Constitutional: Negative for fever, chills, and weight loss, Eyes: Negative for injury, tw4 pain, redness, and discharge, Cardiovascular: Negative for chest pain, palpitations, and edema, Abdomen/GI: Negative for abdominal pain, nausea, vomiting, diarrhea, and constipation. 06:48 Respiratory: Positive for cough, shortness of breath, wheezing. Exam: 06:48 Constitutional: This is a well developed, well nourished patient who is awake, alert, tw4 and in no acute distress. Head/Face: Normocephalic, atraumatic. Chest/axilla: Normal chest wall appearance and motion. Nontender with no deformity. No lesions are appreciated. Cardiovascular: Regular rate and rhythm with a normal S1 and S2. No gallops, murmurs, or rubs. Normal PMI, no JVD. No pulse deficits. Respiratory: Lungs have equal breath sounds bilaterally, clear to auscultation and percussion. No rales, rhonchi or wheezes noted. No increased work of breathing, no retractions or nasal flaring. Abdomen/GI: Soft, non-tender, with normal bowel sounds. No distension or tympany. No guarding or rebound. No evidence of tenderness throughout. MS/ Extremity: Pulses equal, no cyanosis. Neurovascular intact. Full, normal range of motion. Neuro: Awake and alert, GCS 15, oriented to person, place, time, and situation. Cranial nerves II-XII grossly intact. Motor strength 5/5 in all extremities. Sensory grossly intact. Cerebellar exam normal. Normal gait. Vital Signs: 02:10 BP 172 / 84; Pulse 72; Resp 20 S; Temp 97.5(O); Pulse Ox 99% on R/A; Weight 92.99 kg cc3 (R); Height 5 ft. 4 in. (162.56 cm) (R); 03:00 BP 154 / 68; Pulse 72; Resp 20 S; Pulse Ox 98% on R/A; cc3 02:10 Body Mass Index 35.19 (92.99 kg, 162.56 cm) cc3 MDM: 02:26 Patient medically screened. tw4 06:48 Differential Diagnosis: Obstructed Airway Bronchitis Influenza Upper Respiratory tw4 Infection. Data reviewed: vital signs, nurses notes. Data interpreted: Pulse oximetry: Interpretation: normal. Test interpretation: by ED physician or midlevel provider: plain radiologic studies. Counseling: I had a detailed discussion with the patient and/or guardian regarding: the historical points, exam findings, and any diagnostic results supporting the discharge/admit diagnosis, lab results, radiology results. Medication response: albuterol nebulizer treatment(s) relieved the patient's symptoms. The patient is no longer wheezing. Response to treatment: the patient's symptoms have markedly improved after treatment, and as a result, I will discharge patient. Special discussion: I discussed with the patient/guardian in detail that at this point there is no indication for admission to the hospital. It is understood, however, that if the symptoms persist or worsen the patient needs to return immediately for re-evaluation. 01/07 02:30 Order name: Flu tw4 01/07 02:27 Order name: CXR XRAY tw4 Administered Medications: 02:43 Drug: Albuterol 1.25 mg Route: Inhalation; cc3 03:10 Follow up: Response: No adverse reaction; Marked relief of symptoms cc3 Disposition: 01/07/19 03:11 Discharged to Home. Impression: Bronchitis, not specified as acute or chronic. - Condition is Stable. - Discharge Instructions: Acute Bronchitis, Adult, Viral Respiratory Infection, [id number]. - Prescriptions for Tessalon Perles 100 mg Oral Capsule - take 1 capsule by ORAL route every 8 hours As needed; 15 capsule. Albuterol Sulfate 90 mcg/actuation - inhale 1-2 puff by INHALATION route every 4-6 hours; 1 Inhaler. Guaifenesin AC 10- 100 mg/5 mL Oral Liquid - take 10 milliliter by ORAL route every 4 hours As needed; 240 milliliter. - Medication Reconciliation Form, Thank You Letter, Antibiotic Education, Prescription Opioid Use form. - Follow up: Private Physician; When: Upon discharge from the Emergency Department; Reason: If symptoms return, Recheck today's complaints, Continuance of care. - Problem is new. - Symptoms have improved. Signatures: Dispatcher [employer] Remington Chaudhari MD MD tw4 Melly Mc cc3 Corrections: (The following items were deleted from the chart) 03:24 03:11 01/07/2019 03:11 Discharged to Home. Impression: Bronchitis, not specified as cc3 acute or chronic. Condition is Stable. Forms are Medication Reconciliation Form, Thank You Letter, Antibiotic Education, Prescription Opioid Use. Follow up: Private Physician; When: Upon discharge from the Emergency Department; Reason: If symptoms return, Recheck today's complaints, Continuance of care. Problem is new. Symptoms have improved. tw4
--- NOTE | 2019-01-07 10:09 | RAD REPORT ---
EXAM DESCRIPTION: RAD - Chest Single View - 01/07/2019 8:19 am CLINICAL HISTORY: CHEST PAIN Chest pain. COMPARISON: No comparisons FINDINGS: Portable technique limits examination quality. The lungs are grossly clear. The heart is normal in size. No displaced fractures. IMPRESSION: No acute intrathoracic process suspected.
--- NOTE | 2019-01-07 20:19 | EKG ---
Test Date: 2019-01-07 Test Time: 02:17:51 Lot Associate: PAPO MEASUREMENT RESULTS: Intervals: Rate: 75 [place]: 160 QRSD: 84 QT: 418 QTc: 466 [place]: P: 56 [place]: 160 QRS: 54 T: 46 INTERPRETIVE STATEMENTS: Normal sinus rhythm Normal ECG Compared to ECG 02/21/2016 00:03:37 No significant changes Electronically Signed On 01-07-19 20:18:07 CDT by El Miller
== END 2019-01-07 03:24 | disposition home or self-care (01) ==
LOC: ER 02:04
DX: J40 Bronchitis, not specified as acute or chronic (principal); Z88.0 Allergy status to penicillin
CPT/HCPCS: 71045; 87804; 93005; 99284